=== PATIENT | male | born 1960 | race Caucasian/White ===

== ENCOUNTER 2021-03-27 18:54 | Emergency (ER) | payer MEDICAID ==
[~2021-03-27] VITALS: Ht 162.6 cm; Wt 81.6 kg
[2021-03-27 18:56] VITALS: BP 134/78
--- NOTE | 2021-03-27 19:15 | NUR ---
PT. IS A 60 Y/O MALE THAT CAME INTO ED WITH C/O OF SOB. PT. STATES "I FEEL LIKE I HAVE TROUBLE CATCHING MY BREATH FOR ABOUT A MONTH NOW." LUNGS CLEAR BILATERALLY ON AUSCULATION. BREATHING EVEN AND UNLABORED. PT. STATES HE FEELS NO PAIN AT THIS TIME. DENIES N/V/D; SKIN IS PINK/WARM/DRY; AAOX4 WITH EVEN AND STEADY GAIT; HR EVEN AND REGULAR; PT DENIES ANY FEVER, CP, SOB, OR COUGH AT THIS TIME; VSS; PATIENT POSITIONED FOR COMFORT; HOB ELEVATED; BEDRAILS UP X2; BED DOWN. ER MD MADE AWARE OF PT STATUS. PMH: HTN, HLD, 2 STENTS (2012), HEART ATTACK (2010), STROKE ALLERGIES: IODINE
--- NOTE | 2021-03-27 19:20 | NUR ---
PAZ SAID AT BEDSIDE FOR EXAMINATION
[2021-03-27] MEDS ORDERED: ALBUTEROL HFA MDI 90 MCG/ACTUATION 8 GM INH ONE (19:25)
--- NOTE | 2021-03-27 19:33 | NUR ---
portable x-ray done
--- NOTE | 2021-03-27 19:39 | NUR ---
EKG AT BEDSIDE
[2021-03-27 19:40] LABS: BASOPHILS # (AUTO) 0.1 K/uL (0.00-0.22); BASOPHILS % (AUTO) 2.4 % (0.0-2.0); EOSINOPHILS # (AUTO) 0.3 K/uL (0-0.4); EOSINOPHILS % (AUTO) 5.9 % (0.0-4.0); HEMATOCRIT 27.8 % (36-52); HEMOGLOBIN 8.7 g/dL (12.0-18.0); LYMPHOCYTES # (AUTO) 1.1 K/uL (2.0-11.5); LYMPHOCYTES % (AUTO) 23.6 % (20.5-51.1); MEAN CORPUSCULAR HEMOGLOBIN 24 pg (27-31); MEAN CORPUSCULAR HGB CONC 31 g/dL (33-37); MEAN CORPUSCULAR VOLUME 75.4 fL (80-94); MONOCYTES # (AUTO) 0.5 K/uL (0.8-1.0); NEUTROPHILS # (AUTO) 2.8 K/uL (1.8-7.7); NEUTROPHILS % (AUTO) 58.1 % (42.2-75.2); PLATELET COUNT (AUTO) 252 K/uL (140-450); RED BLOOD CELL COUNT(AUTO) 3.68 MIL/uL (4.20-6.10); RED CELL DISTRIBUTION WIDTH 19.9 % (11.6-13.7); WHITE BLOOD COUNT (AUTO) 4.8 K/uL (4.8-10.8)
[2021-03-27 19:59] LABS: ALBUMIN 3.5 g/dL (3.4-5.0); ANION GAP 17.3 (8-16); CARBON DIOXIDE 20.7 mmol/L (21-32); CREATININE 1.1 mg/dL (0.6-1.3); TOTAL BILIRUBIN 0.2 mg/dL (0.0-1.0)
[2021-03-27] MEDS ORDERED: FERR325E14 PO (20:33)
[2021-03-27] MEDS ORDERED: DOCU-299 PO (20:33)
[2021-03-27] MEDS ORDERED: FURO-572 PO (20:33)
[2021-03-27] MEDS ORDERED: ALBU-118 INH (20:45)
[2021-03-27 20:50] VITALS: BP 134/78
--- NOTE | 2021-03-27 20:50 | NUR ---
Patient discharged with v/s stable. Written and verbal after care instructions given and explained. Patient alert, oriented and verbalized understanding of instructions. Ambulatory with steady gait. All questions addressed prior to discharge. ID band removed. Patient advised to follow up with PMD. Rx of PROAIR HFA, COLACE, FERROUS SULFATE, AND LASIX given. Patient educated on indication of medication including possible reaction and side effects. Opportunity to ask questions provided and answered.
== END 2021-03-27 20:50 | disposition home or self-care (01) ==
LOC: MED 18:54
DX: D50.9 Iron deficiency anemia, unspecified (principal); R73.9 Hyperglycemia, unspecified; I10 Essential (primary) hypertension; E78.5 Hyperlipidemia, unspecified
CPT/HCPCS: 36415; 71045; 80053; 81002; 83880; 84484; 85025; 93005; 94664; 99284